=== PATIENT | male | born 1970 | race Caucasian/White ===

== ENCOUNTER → 2017-07-03 14:43 | Outpatient (CLI) | payer OTHER, SELFPAY ==
--- NOTE | 2017-07-03 14:47 | RAD_ITS ---
STUDY: X-RAY - LEFT SHOULDER REASON FOR EXAM: Shoulder pain. TECHNIQUE: 3 view(s) of the shoulder. COMPARISON: None. FINDINGS: Normal glenohumeral articulation. There is acromioclavicular arthrosis with joint space narrowing. Normal acromion. There is mild cystic change of the greater tuberosity. The soft tissue structures are unremarkable. Normal visualized pulmonary apex. RAD/Shoulder min 2 Views IMPRESSION: Acromioclavicular arthrosis. Electronically Signed: George Blanco MD at 16:23 EST Tel , Service support ,
== END ==
PROVIDERS: Visit Provider Orthopaedic Surgery
DX: M19.012 Primary osteoarthritis, left shoulder (principal)
CPT/HCPCS: 73030

== ENCOUNTER → 2023-09-18 | Outpatient (CLI) | payer OTHER, SELFPAY ==
[2023-09-18 10:26] LABS: PSA,Total- Diagnostic 5.17 ng/mL (0.0-4.0)
[2023-09-19 14:09] LABS: PSA, Free 0.97 ng/mL; PSA, Free % 20.6 % (.)
== END | disposition home or self-care (01) ==
LOC: LAB 09:05
PROVIDERS: Referring Provider Urology; Visit Provider Urology
DX: R97.20 Elevated prostate specific antigen [PSA] (principal)
CPT/HCPCS: 36415; 84153; 84154

== ENCOUNTER → 2024-03-19 | Outpatient (CLI) | payer OTHER, SELFPAY ==
[2024-03-19 10:29] LABS: PSA,Total - Annual Screen 6.03 ng/mL (0.00-4.00)
== END | disposition home or self-care (01) ==
PROVIDERS: Referring Provider Nurse Practitioner; Visit Provider Nurse Practitioner
DX: R97.20 Elevated prostate specific antigen [PSA] (principal)
CPT/HCPCS: 36415; 84153; G0103

== ENCOUNTER → 2024-04-22 | Outpatient (CLI) | payer OTHER, SELFPAY ==
--- NOTE | 2024-04-22 08:05 | MRI_ITS ---
STUDY: MR PROSTATE GLAND/ PELVIS WITH T WITHOUT CONTRAST REASON FOR EXAM: Male, 54 years old. ELEVATED PSA TECHNIQUE: Standardized fat and water weighted pulse sequences were obtained in all 3 orthogonal planes, pre-and post contrast administration. IV 15cc clariscan was administered for the contrast portion of the examination. COMPARISON: None. FINDINGS: Prostate gland volume/size: 5.68 x 3.61 x 4.90 cm. Anterior fibromuscular stroma: Normal. Peripheral zone: A few scattered linear and intermediate fibrotic strands are present bilaterally. No discrete mass or focally enhancing lesion is seen. Central zone: 1.14 cm low signal nodule in the far anterior and inferior aspect of the right central zone seen on image 19/30 series 9 that demonstrates moderate postcontrast enhancement as seen on image 31/44 series 13, however it is both dark on the diffusion-weighted and ADC map which is usually associated with a hyperplastic nodule rather than the right signal typically seen with a neoplasm. Variable internal cellularity can be present in neoplasm as well, and can be correlated with prostate PET/CT to determine if there is any malignant features. The remaining appearance of the bilateral central and transitional zones is typical of BPH with intermediate to low signal nodules intermixed with cysts and hypercellularity. Transitional zone: The remaining appearance of the bilateral central and transitional zones is typical of BPH with intermediate to low signal nodules intermixed with cysts and hypercellularity. Prostate capsule: Intact: Seminal vesicles: Normal fluid signal bilaterally. Pelvic sidewall lymphadenopathy: None demonstrated. Bony structures: No lytic or blastic or aggressive process. No demonstrated enhancing lesions. No bone marrow edema or infiltrative marrow replacement process is seen. No visualized pathologic fractures. Bladder: No demonstrated masses or filling defects/stones. Normal urinary bladder. Normal visualized small intestine. There are multiple colonic diverticula of the sigmoid colon consistent with chronic diverticulosis. Vessels: No significant or large aneurysm is demonstrated. Normal osseous structures. Normal abdominal wall. Tiny fat-containing left inguinal hernia noted. MRI/Pelvis W/WO Contrast IMPRESSION: 1. Central zone: 1.14 cm low signal nodule in the far anterior and inferior aspect of the right central zone seen on image 19/30 series 9 that demonstrates moderate postcontrast enhancement as seen on image 31/44 series 13, however it is both dark on the diffusion-weighted and ADC map which is usually associated with a hyperplastic nodule rather than the right signal typically seen with a neoplasm. 2. Variable internal cellularity can be present in neoplasm as well, and can be correlated with prostate PET/CT to determine if there is any malignant features. The remaining appearance of the bilateral central and transitional zones is typical of BPH with intermediate to low signal nodules intermixed with cysts and hypercellularity. 3. PI-RADS 2: low (clinically significant cancer is unlikely to be present) 4. Targeted image guided biopsy of nodules or area of interest can be performed for definitive pathologic assessment of the tissue and diagnosis Prostate MRI reference: 15-30% of prostate cancers can go undetected on Prostate MRI. Monitoring and assessment by Primary physician, Urology, and oncology service recommended and treated clinically. (Cancers ([place]). 2022Apr 12;15(27):5869. doi: [id number] Prostate Cancers Invisible on Multiparametric MRI: Pathologic Features in Correlation with Whole-Mount Prostatectomy Deangelo Avila 1,2,*, Dar Chen 3, Sia Lovett 1,2, Lucy Ang 1,2, Antonina Jones 4, Rajeev Almendarez 5, Porter Gómez 6, Maxwell Mahoney 1,2, Torri Calderon 1,2) Reference information: Normal prostate tissue Benign prostatic hypertrophy cancer/tumor - low signal peripheral , transitional, and central zones malignancy appears as bright on DWI and low signal on ADC map Prostate imaging-reporting and data system (PI-RADS) PI-RADS 1: very low (clinically significant cancer is highly unlikely to be present) PI-RADS 2: low (clinically significant cancer is unlikely to be present) PI-RADS 3: intermediate (the presence of clinically significant cancer is equivocal) PI-RADS 4: high (clinically significant cancer is likely to be present) PI-RADS 5: very high (clinically significant cancer is highly likely to be present) PI-RADS X: component of exam technically inadequate or not performed Prostate malignancy distribution: Peripheral zone: 70-80% Transitional zone: 10-20% Central zone: 5% or less Electronically Signed: Benjamin Dodge MD at 15:37 EST Reading Location ID and State: [address] [place] [address] , Service support ,
== END | disposition home or self-care (01) ==
PROVIDERS: Referring Provider Nurse Practitioner; Visit Provider Nurse Practitioner
DX: R97.20 Elevated prostate specific antigen [PSA] (principal)
CPT/HCPCS: 72197; A9575